=== PATIENT | male | born 1950 | race Caucasian/White ===

== ENCOUNTER 2016-10-10 05:23 | Inpatient (IN) | payer MEDICARE, OTHER ==
[2016-09-28 09:51] LABS: BASOPHILS 0.4 %; BASOPHILS ABSOLUTE 0.03 10/3/uL (0.0-0.16); EOSINOPHILS 2.8 %; EOSINOPHILS ABSOLUTE 0.24 10/3/uL (0.0-0.53); HEMATOCRIT 41.5 % (40.0-51.0); HEMOGLOBIN 13.7 g/dL (13.6-17.8); IMMATURE GRANULOCYTES 0.9 %; IMMATURE GRANULOCYTES ABSOLUTE 0.08 10/3/uL (0.0-0.11); LYMPHOCYTES 21.4 %; LYMPHOCYTES ABSOLUTE 1.81 10/3/uL (0.67-4.30); MANUAL DIFF NO %; MEAN CORPUSCULAR HEMOGLOB 29.9 pg (26.0-34.0); MEAN CORPUSCULAR VOLUME 90.6 fL (80-100); MEAN PLATELET VOLUME 9.4 fL (9.2-13.0); MONOCYTES 8.9 %; MONOCYTES ABSOLUTE 0.75 10/3/uL (0.21-1.20); NEUTROPHILS 65.6 %; NEUTROPHILS ABSOLUTE 5.53 10/3/uL (2.02-8.40); PLATELET COUNT 222 10/3/uL (150-400); RBC DISTRIBUTION WIDTH 13.6 % (12.0-16.0); RED CELL COUNT 4.58 10/6/uL (4.7-6.1); WHITE BLOOD CELLS 8.4 10/3/uL (4.5-10.5)
[2016-09-28 09:59] LABS: INTERNATIONAL NORMAL RATI 2.1 UNITS (-); PARTIAL THROMBO TIME 38.4 SEC (22.5-37.2); PROTIME (NOT ORD) 23.4 SEC (12.0-14.5)
[2016-09-28 10:35] LABS: ASCORBIC ACID (UR NOT ORDER) NEG (NEG); BILIRUBIN, URINE NEGATIVE (NEG); KETONE, URINE NEGATIVE (NEG); LEUKOCYTE ESTERASE(NOT OR NEG (NEG); WBC (NOT ORDERED) (RFLEX) 3 (0-5)
[2016-09-29 10:53] LABS: A/G RATIO 1.4 (0.7-1.9); ALKALINE PHOSPHATASE 66 U/L (45-117); BUN (BLOOD UREA NITROGEN) 17 MG/DL (6-23); CALCIUM, SERUM 9.7 MG/DL (8.5-10.4); CHLORIDE, SERUM 106 MMOL/L (96-112); CO2 (CARBON DIOXIDE) 29 MMOL/L (24-34); CREATININE 0.83 MG/DL (0.70-1.30); GFR AFRICAN AMERICAN 107 ML/MIN (>=60); GFR NON AFRICAN AMERICAN 92 ML/MIN (>=60); GLOBULIN 2.9 G/DL (2.5-4.1); GLUCOSE, SERUM 121 MG/DL (60-99); SGOT(AST) 13 U/L (5-40); SGPT(ALT) 13 U/L (5-65); SODIUM, SERUM 141 MMOL/L (135-148); TOTAL BILIRUBIN 0.3 MG/DL (0-1.2); TOTAL PROTEIN 6.9 G/DL (6.0-8.5)
[2016-09-29 10:54] LABS: POTASSIUM, SERUM 4.5 MMOL/L (3.5-5.3)
--- NOTE | ~2016-10-10 | OP ---
Record Of Operation [facility] [address] [place]. [address] NAME: MAREK MORELAND : 52 STATUS : ADM IN PAT#: [id number] AGE: 66 ADM/REG DATE : 10/10/16 MR#: [id number] REPORT SERV DATE: 10/10/16 DICTATED BY: TEETEE FERGUSON DATE: 10/10/16 REPORT STATUS : Draft TRANSCRIBED BY: MODL DATE: 10/10/16 DATE OF PROCEDURE: 10/10/2016 PREOPERATIVE DIAGNOSIS: Left knee arthritis. POSTOPERATIVE DIAGNOSIS: Left knee arthritis. PROCEDURE PERFORMED: Left total knee arthroplasty. SURGEON: Teetee Ferguson M.D. DIESEL SERVICE JOURNEYMAN: Redd Ann. ANESTHESIA: General with adductor block and local infusion. PROCEDURE IN DETAIL: The patient is clearly identified and after obtaining informed consent is brought to the operating room at [facility] where anesthesia is induced uneventfully with excellent anesthetic effect. Subsequently, the affected extremity is prepped and draped in the usual manner and after an appropriate time-out procedure is performed, via an anterior approach, the skin is divided, fascial planes are elevated, paramedial approach to the knee is made. The structures themselves are elevated, excised, and debrided were appropriate, whereupon the patella is carefully everted, calipered, and planed and with the size and type being reproduced with the appropriate-size patella, trialing is performed successfully. At this point, the patella is then carefully subluxed laterally, the knee is flexed, osteophytes around the distal femur are removed, followed by the ACL being divided. The femoral canal is entered and vented, at which point with the intramedullary guide being utilized, the distal femoral cut is made. At this point, the tibia is carefully subluxed anteriorly. The surrounding soft tissues to the tibia are protected with Hohmann retractors, at which point the extramedullary guide is utilized to perform the proximal tibial cut and after cleansing these tissues, the spacer block is utilized in extension to confirm excellent extension, stability, and alignment. The guiding pins are then all carefully removed and the knee is then flexed. The femur is sized, whereupon the anterior, posterior, chamfer, and box cuts are made appropriately. The proximal tibia then is assessed. Osteophytes and surrounding soft tissues are removed and debrided were appropriate. Posterior osteophytes are removed as well. The menisci are excised and thus concluding trialings performed successfully. The proximal tibia then is carefully prepared utilizing proper cement technique. The permanent implants have been carefully placed into position uneventfully where upon copious irrigations performed, the permanent tibial implants applied and thus concluded. The joint was then copiously irrigated, at which point it is closed carefully in layers including Vicryl and fely for the skin, at which point Aquacel sterile dressing is applied. The patient is allowed to awaken and is transferred to the bed and subsequently to the recovery room in stable condition having tolerated the procedure well. ESTIMATED BLOOD LOSS: 50 mL. Record Of Operation [facility] [address] [place]. [address] NAME: MAREK MORELAND : 52 STATUS : ADM IN [facility]#: [id number] AGE: 66 ADM/REG DATE : 10/10/16 MR#: [id number] REPORT SERV DATE: 10/10/16 DICTATED BY: TEETEE FERGUSON DATE: 10/10/16 REPORT STATUS : Draft TRANSCRIBED BY: CARSON DATE: 10/10/16 FLUIDS: 1100 mL. TOURNIQUET TIME: 46 minutes. PATHOLOGY: Sent specimen. MICROBIOLOGY: None. COMPLICATIONS: None. SPONGE AND NEEDLE COUNTS: Reportedly correct. ANTIBIOTICS: Administered appropriately preoperatively and ordered to be discontinued within 23 hours. IMPLANTS: Attune knee by DePuy, femur 7, tibia 7, patella 41, polyethylene /. HARRY/CARSON Teetee Ferguson M.D. / [id number] CC: Teetee Ferguson M.D.
[~2016-10-10 05:23] MED LIST: C5 PO; GLUCPH PO; NEUR300 PO; SKELAXIN8 PO; TOUJEO SC; ZESTRIL40 MG PO
[2016-10-10 06:35] LABS: INTERNATIONAL NORMAL RATI 1.3 UNITS (-)
[2016-10-10 06:36] LABS: PROTIME (NOT ORD) 16.1 SEC (12.0-14.5)
[2016-10-11 05:57] LABS: HEMATOCRIT 33.4 % (40.0-51.0); HEMOGLOBIN 10.7 g/dL (13.6-17.8)
[2016-10-11 05:58] LABS: INTERNATIONAL NORMAL RATI 1.3 UNITS (-); PROTIME (NOT ORD) 16.4 SEC (12.0-14.5)
[2016-10-11 06:02] LABS: BUN (BLOOD UREA NITROGEN) 14 MG/DL (6-23); CHLORIDE, SERUM 102 MMOL/L (96-112); CO2 (CARBON DIOXIDE) 31 MMOL/L (24-34); CREATININE 0.88 MG/DL (0.70-1.30); GFR AFRICAN AMERICAN 104 ML/MIN (>=60); GFR NON AFRICAN AMERICAN 90 ML/MIN (>=60); GLUCOSE, SERUM 143 MG/DL (60-99); POTASSIUM, SERUM 4.3 MMOL/L (3.5-5.3); SODIUM, SERUM 138 MMOL/L (135-148)
[2016-10-11 06:03] LABS: CALCIUM, SERUM 8.6 MG/DL (8.5-10.4)
[2016-10-12 04:26] LABS: HEMATOCRIT 30.8 % (40.0-51.0); HEMOGLOBIN 10.1 g/dL (13.6-17.8)
[2016-10-12 04:33] LABS: INTERNATIONAL NORMAL RATI 1.4 UNITS (-); PROTIME (NOT ORD) 17.1 SEC (12.0-14.5)
[2016-10-12] MEDS ORDERED: OXYCOD PO (09:41)
== END 2016-10-12 12:27 | disposition home or self-care (01) | DRG 470 ==
LOC: SDC/OF 05:23 → PACU 10:37 → 3JRC 11:16
PROVIDERS: Orthopaedic Surgery
PROC: 3E0T3CZ (ICD-10-PCS; 2016-10-10)
PROC: 0SRD0J9 Replacement of Left Knee Joint with Synthetic Substitute, Cemented, Open Approach (ICD-10-PCS; principal; 2016-10-10 07:30)
DX: M17.12 Unilateral primary osteoarthritis, left knee (principal); G62.9 Polyneuropathy, unspecified; I48.2 Chronic atrial fibrillation; I10 Essential (primary) hypertension; E11.9 Type 2 diabetes mellitus without complications; Z79.01 Long term (current) use of anticoagulants
CPT/HCPCS: 36415; 71020; 80048; 80053; 81001; 82962; 85014; 85018; 85025; 85610; 85730; 86850; 86900; 86901; 87641; 88305; 88311; 93005; 97116-GP; 97150-GP; 97161-GP; 97165-GO; A9270-GY; C1776; G8978-CK-GP; G8979-CI-GP; G8987-CJ-GO; G8988-CJ-GO; G8989-CJ-GO; J0330; J0690; J1170; J1885; J2250; J2274; J2370; J2405; J2710; J2795; J3010; P9045